=== PATIENT | female | born 1990 | race Caucasian/White ===

== ENCOUNTER 2017-08-06 15:12 | Emergency (ER) | payer BC, OTHER ==
[~2017-08-06] VITALS: Ht 157.5 cm; Wt 91.2 kg
[~2017-08-06 15:12] MED LIST: RISP1TAB68 PO
[2017-08-06 15:15] VITALS: TEMP 36.6; Ht 157.5 cm; Wt 91.2 kg
[2017-08-06] MEDS ORDERED: CITA20TA9 PO (15:49)
[2017-08-06] MEDS ORDERED: BUSP-8 PO (15:49)
[2017-08-06] MEDS ORDERED: B-CO1CAP17 PO (15:49)
[2017-08-06] MEDS ORDERED: RISP0.5T9 PO (15:49)
[2017-08-06] MEDS ORDERED: NAPROXEN 250 MG TAB PO STA (15:58)
--- NOTE | 2017-08-06 16:56 | DIAGNOSTIC IMAGING REPORT ---
PELVIS 1 OR 2 VIEW ROUTINE CLINICAL HISTORY: 26 years-old Female presenting with fall. TECHNIQUE: Single frontal view of the pelvis was obtained. COMPARISON: None. FINDINGS: Sacroiliac joints, pubic symphysis, and hip joints congruent. Bony pelvis intact. Femoral necks intact. No advanced degenerative change. Lower lumbar spine normal. IMPRESSION: No acute osseous injury of the pelvis. Electronically signed by: Win Fregoso M.D. 08/06/2017 4:55 PM Dictated Date/Time: 08/06/2017 4:54 PM
--- NOTE | 2017-08-06 16:57 | DIAGNOSTIC IMAGING REPORT ---
R ELBOW MIN 3 VIEWS ROUTINE CLINICAL HISTORY: 26 years-old Female presenting with fall. TECHNIQUE: Frontal, oblique, and lateral views of the right elbow were obtained. COMPARISON: None. FINDINGS: No joint effusion. Elbow joint congruent. No acute fracture or malalignment. No advanced degenerative change. No radiographic soft tissue abnormality. IMPRESSION: No acute osseous injury of the right elbow. Electronically signed by: Win Fregoso M.D. 08/06/2017 4:56 PM Dictated Date/Time: 08/06/2017 4:55 PM
--- NOTE | 2017-08-06 16:58 | DIAGNOSTIC IMAGING REPORT ---
R RIBS UNILATERAL MIN 2 VIEWS CLINICAL HISTORY: 26 years-old Female presenting with fall. TECHNIQUE: Frontal and oblique views of the right ribs were obtained. PA view of the chest was also obtained. COMPARISON: Chest x-ray from 10/09/2012. FINDINGS: No displaced right rib fracture. Rudimentary 12th rib. Cardiomediastinal silhouette normal. Lungs and pleural spaces clear. Cholecystectomy clips noted in the upper abdomen. IMPRESSION: 1. No displaced right rib fracture. 2. No acute cardiopulmonary disease. Electronically signed by: Win Fregoso M.D. 08/06/2017 4:57 PM Dictated Date/Time: 08/06/2017 4:56 PM
--- NOTE | 2017-08-06 16:58 | DIAGNOSTIC IMAGING REPORT ---
CERVICAL SPINE 6 VIEWS CLINICAL HISTORY: Fall. FINDINGS: AP, lateral, bilateral oblique, swimmer's, and odontoid views of the cervical spine are obtained. No prior studies are available for comparison at the time of dictation. The skeletal structures are well mineralized. There is no radiographic evidence of fracture or subluxation. The odontoid process and lateral masses appear intact on the open mouth view. The spinolaminar line is preserved. Vertebral body height and alignment are maintained. There is straightening of the cervical lordosis with reversal centered at C5. The spinous processes appear intact. The intervertebral disc spaces are normal. There is no evidence of neuroforaminal stenosis on the oblique views. The prevertebral soft tissues are within normal limits. Visualized apical lung parenchyma appears clear. IMPRESSION: There is no radiographic evidence of fracture or subluxation involving the cervical spine. Electronically signed by: Eric Yung M.D. 08/06/2017 4:57 PM Dictated Date/Time: 08/06/2017 4:55 PM
--- NOTE | 2017-08-06 16:59 | DIAGNOSTIC IMAGING REPORT ---
R SHOULDER MIN 2 VIEWS ROUTINE CLINICAL HISTORY: 26 years-old Female presenting with fall. TECHNIQUE: After rotation, external rotation, Grashey views of the right shoulder were obtained. COMPARISON: Chest x-ray from 10/09/2012. FINDINGS: Glenohumeral and acromioclavicular joints congruent. No deformity of the right humeral head. No acute fracture or malalignment. No advanced degenerative change. No radiographic soft tissue abnormality. Visualized portion of the right hemithorax clear. IMPRESSION: No acute osseous injury of the right shoulder. Electronically signed by: Win Fregoso M.D. 08/06/2017 4:58 PM Dictated Date/Time: 08/06/2017 4:57 PM
--- NOTE | 2017-08-06 17:00 | DIAGNOSTIC IMAGING REPORT ---
SACRUM COCCYX MIN 2 VIEWS CLINICAL HISTORY: 26 years-old Female presenting with fall. TECHNIQUE: Frontal and lateral views of the sacrum and coccyx were obtained. COMPARISON: None. FINDINGS: Sacroiliac joints congruent. Pubic symphysis congruent. Normal sacral kyphosis. Normal appearance of the sacrococcygeal articulation. No displaced fracture. IMPRESSION: No acute osseous injury of the sacrum or coccyx. Electronically signed by: Win Fregoso M.D. 08/06/2017 4:59 PM Dictated Date/Time: 08/06/2017 4:58 PM
--- NOTE | 2017-08-06 17:00 | DIAGNOSTIC IMAGING REPORT ---
LUMBAR SPINE 3 VIEWS CLINICAL HISTORY: Fall down stairs. FINDINGS: AP, lateral, and coned-down views of the lumbar spine are compared to study dated 08/02/2010. The skeletal structures are well mineralized. There is no radiographic evidence of fracture or malalignment. Vertebral body height and alignment are maintained. The transverse and spinous processes are intact. There is no evidence of spondylolysis. The intervertebral disc spaces are well-maintained. The visualized bony pelvis appears intact. There is a nonobstructed abdominal bowel gas pattern. Cholecystectomy clips are noted. There is moderate colonic fecal retention. IMPRESSION: There is no radiographic evidence of fracture or malalignment involving the lumbar spine. Electronically signed by: Eric Yung M.D. 08/06/2017 4:58 PM Dictated Date/Time: 08/06/2017 4:57 PM
[2017-08-06 17:06] VITALS: BP 116/69; PULSE 82; O2SAT 99
--- NOTE | 2017-08-06 20:16 | EMERGENCY ROOM VISIT NOTE ---
ED Visit Note First contact with patient: 15:19 Chief Complaint: Back pain. History of Present Illness: Ms. Ch is a 26-year-old female who ambulates into the ED with multiple complaints after fall. Patient reports approximately 1 hour ago she was leaving work. She reports she tripped over her own feet and fell down 4-5 concrete steps. She reports before the fall she had no lightheadedness or dizziness. She is unsure if she struck her head at the time of the fall. She reports there was no loss of consciousness at the end of the fall. She reports she had a sit on the ground for a while to collect herself and then she brought herself to the emergency department. Currently patient is complaining of a headache. She places her headache globally. She rates her discomfort 5/10. Her pain is nonradiating. She has not identified any aggravating or alleviating factors related to the pain. She has not taken any medications for pain prior to arrival at the hospital. Additionally she reports she is having cervical spine pain, lumbar spine pain, coccyx pain, right posterior shoulder pain, posterior left elbow pain, left sided rib pain and left posterior pelvis pain. Actively she describes all these pains as a sharp sensation. Her worst pain is in her posterior shoulder and elbow. She collectively rates her discomfort 8/ 10. None of her pains are radiating. Her neck pain is located over the C3-C4 and C6-C7 areas, her lumbar back pain is located in the L2-L3 area, her coccyx pain is located over the distal coccyx. Her pelvis pain is located over the posterior iliac crest, and her rib pain is located over lateral aspect of ribs 6 and 7. She denies dizziness, lightheadedness, visual changes, hearing changes, difficulty speaking, difficulty swallowing, difficulty ambulating/coordinating body movements, thoracic back pain, chest pain, shortness of breath, abdominal pain, nausea, vomiting, extremity weakness/numbness/tingling. Review of Systems: As noted above in history of present illness. All body systems were reviewed and found to be negative as noted above. Past Medical History: Unspecified skin disorder, asthma, bronchitis, bipolar disorder, and status post cholecystectomy. Current Medications: Adhesive tape, squaric acid dibutyl nicole. Allergies to Medications: Risperdal, buspirone, celexa, nephrocaps. Social History: Patient is currently employed; she feels safe in her home environment; Physical Examination: Vital Signs: Date Time Temp Pulse Resp B/P (MAP) Pulse Ox O2 Delivery O2 Flow Rate FiO2 08/06/17 17:06 82 20 116/69 99 Room Air 08/06/17 15:15 36.6 86 20 121/85 98 Room Air GENERAL: 26-year-old female in mild distress due to pain, nontoxic-appearing, afebrile and hemodynamically stable. NEUROLOGICAL: Awake, alert and oriented to person, place and time. Answering questions appropriately and following commands. Normal gait. Good hand eye coordination. Romberg test negative. Pronator drift test negative. Cranial nerves II through XII grossly intact. Good short-term and long-term recall. SKIN: Warm, dry and pink. No soft tissue trauma noted. HEENT: Atraumatic and normocephalic. Skull: No bony deformity, crepitus, swelling or ecchymosis. No raccoons eyes or ann signs. No drainage from the ears of the nostril; no hemotympanum. Face: No bony tenderness, swelling or ecchymosis. PERRLA. EOMI without nystagmus. No malocclusion. No intraoral trauma. Airway patent. Speech is normal and clear. Trachea midline. No jugular venous distention. BACK: Mild tenderness right paraspinous muscles right lateral to the C3-C4 and T5 through T7 areas. There is no tenderness over the bony processes. No step- offs, bony crepitus or deformities. No tenderness throughout the thoracic bony structures or paraspinous muscles. No CVA tenderness. Mild tenderness over the right lateral area in the paraspinous muscles related to L2-L3. Initially area once again there is no bony tenderness, swelling, ecchymosis, step-offs. Patient does have full range of motion of the cervical and lumbar spine. THORAX: Lungs sounds are clear to auscultation and equal bilaterally with symmetrical chest wall. Mild to moderate tenderness over the right lateral ribs C6 and C7. No wheezing, rales or rhonchi. No bony crepitus, bony deformity or subcutaneous air noted. HEART: Regular rate and rhythm. No gallops, rubs or murmurs are appreciated. ABDOMEN: Flat, soft and nontender. Positive bowel sounds in all quadrants. No guarding, rigidity or organomegaly. PELVIS: Stable and nontender to compression rock. Tenderness over the posterior superior iliac crest area. No bony deformity, bony crepitus, swelling or ecchymosis. RIGHT UPPER EXTREMITY: No gross bony deformity. Mild tenderness over the posterior humeral head and the scapula. No bony deformity, bony crepitus, swelling or ecchymosis. Full range of motion of the shoulder at the glenohumeral joint. No tenderness over the acromioclavicular joint. There is also tenderness over the medial and lateral aspect of the distal humerus. No bony deformity or crepitus. No swelling or ecchymosis. Patient does have full range of motion of the shoulder, elbow forearm and wrist. Distal pulses are intact and capillary refill was brisk. ED Course: Patient is assessed as noted above. Patient's medication list was reviewed. Rib X-Rays: Were read by myself and the radiologist showing no acute infiltrates , effusions or pneumothorax. Normal heart silhouette. No bony rib fractures noted. Right Shoulder X-Ray: Were read by myself and the radiologist showing no acute fractures or dislocations. Right Elbow X-Rays: Were read by myself and the radiologist showing no acute fractures or dislocations. Cervical Spine X-Rays: Were read by myself and the radiologist showing no acute fractures or subluxations. Lumbar Spine X-Rays: Were read by myself and the radiologist showing no acute fractures or subluxations. Sacrum/coccyx X-Rays: Were read by myself and the radiologist showing no acute fractures or subluxations. Pelvis X-Ray: Read by myself and shows no acute fractures or dislocations. Patient was given 500 mg of naproxen by mouth for pain. Patient was given a arm sling for her shoulder and elbow pain. Patient was educated about today's findings and instructed on her treatment plan ; she verbalizes understanding and agreement with this plan. Clinical Impression: Fall. Cervical, lumbar and coccyx pain. Right shoulder and elbow pain. Right sided rib pain. Right sided pelvis pain. Disposition: Patient discharged home in stable condition; prior to departure she was reassessed and subjectively reported she was feeling slightly better and rated her overall discomfort 7/10 Plan: Comfort measures including rest, ice and alternating ibuprofen and acetaminophen were discussed with the patient. Patient was encouraged to use the sling for 3-6 days or until pain-free. Patient was educated on signs of head injury. Patient was encouraged to follow-up with family physician for recheck. Patient was encouraged return the ED for any signs of head injury, worsening pain or any new/concerning symptoms.
== END 2017-08-06 17:33 | disposition home or self-care (01) ==
LOC: C.EDB 15:15 → C.EDD 17:33
DX: M54.5 Low back pain (principal); M54.2 Cervicalgia; M53.3 Sacrococcygeal disorders, not elsewhere classified; R51 Headache; M25.511 Pain in right shoulder; M25.521 Pain in right elbow; R07.81 Pleurodynia; R10.2 Pelvic and perineal pain; W10.9XXA Fall (on) (from) unspecified stairs and steps, initial encounter; J45.909 Unspecified asthma, uncomplicated; F31.9 Bipolar disorder, unspecified; Z90.49 Acquired absence of other specified parts of digestive tract; Z88.8 Allergy status to other drugs, medicaments and biological substances